=== PATIENT | male | born 1995 | race Caucasian/White ===

== ENCOUNTER 2019-02-11 07:01 | Emergency (ER) | payer OTHER ==
[~2019-02-11] VITALS: Ht 172.7 cm; Wt 107.5 kg
[2019-02-11 07:30] VITALS: BP 177/85
[2019-02-11] MEDS ORDERED: ULTRAM 50MG TAB50 MG PO (07:30)
[2019-02-11] MEDS ORDERED: IBUPROFEN 800800 M1 PO (07:30)
[2019-02-11] MEDS ORDERED: PENICILLIN V P500 MG PO (07:30)
== END 2019-02-11 07:30 | disposition home or self-care (01) ==
LOC: M.ERS 07:01
DX: K02.9 Dental caries, unspecified (principal)